=== PATIENT | male | born 1940 | race Caucasian/White ===

== ENCOUNTER 2024-09-20 22:45 | Inpatient (IN) | payer MEDICARE, OTHER, SELFPAY ==
[2024-09-20] VITALS (7 sets, daily range): BP systolic 123–141; BP diastolic 39–53
[2024-09-20 20:17] LABS: % Basophils 0.7 % (0-2); % Eosinophils 2.8 % (0-6); % Immature Granulocytes 0.3 % (0-0.5); % Lymphocytes 24.6 % (20.5-51.1); % Monocytes 10.2 % (1.7-9.3); % Neutrophils 61.4 % (42.2-75.2); Absolute Basophils 0.1 10^3/uL (0-0.2); Absolute Eosinophils 0.2 10^3/uL (0-0.7); Absolute Lymphocytes 1.7 10^3/uL (1.2-3.4); Absolute Monocytes 0.7 10^3/uL (0.1-0.6); Absolute Neutrophils 4.2 10^3/uL (1.4-6.5); Hematocrit 35.1 % (39.0-52.0); Hemoglobin 12.1 g/dL (13.0-18.0); Mean Corp Hgb Conc. 34.5 g/dL (33.0-37.0); Mean Platelet Volume 11.4 fL (7.4-10.4); Nucleated Red Blood Cells % 0 % (-); Platelet Count 176 10^3/uL (130-400); White Blood Cell Count 6.8 10^3/uL (4.8-10.8)
--- NOTE | 2024-09-20 20:30 | ED.GENMED ---
History of Present Illness
General
Chief Complaint: Fainting Sensation
Time Seen by Provider: 09/20/24 20:00
History of Present Illness
History of Present Illness:
Patient is a 83-year-old woman with history of hypertension, hyperlipidemia presenting to the emergency department with near syncope. Patient himself does have dementia so is unable to provide clear history. He states that he only recalls eating
dinner and then he was here. Per patient's family numbers at bedside he was sitting and started staring off. He became very pale and was not responding. Initially triage note noted that he stood became sweaty nauseous however family states that
he never stood up and that happened at rest. They do state that he has been having some episodes of orthostatic dizziness which is why his primary care doctor had him wear a Holter monitor. 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 He has no history of
arrhythmia. He has never had this staring episode where he became extremely pale. Patient denies any chest pain shortness of breath abdominal pain. Per medics when they arrived his heart rate was in the 30s with a blood pressure of 82/55.
Unclear what their twelve-lead showed but they did give him 1 mg of atropine as well as IV fluids. His heart rate has improved to the 40s 50s and his blood pressures also improved.
Phy Exam
Physical Exam
Physical Exam:
GENERAL: in no acute distress
HEENT: normocephalic, extraocular movements intact, dry oral mucosa
NECK: normal inspection
RESPIRATORY: no respiratory distress, clear to auscultation bilaterally
CARDIOVASCULAR: regular rhythm, bradycardic rate
ABDOMEN/: soft, non-distended, non-tender to palpation, no rebound or guarding
EXTREMITIES: non-tender, no edema/swelling
NEUROLOGIC: awake and alert, moves all extremities
SKIN: warm
Course
Orders/Labs/Results
Orders:
Orders
09/20/24 20:05
EKG [Electrocardiogram (*1)] Urgent
Reason for Study: Vertigo / Dizzy
09/20/24 20:06
EKG- Treatment ONCE
09/20/24 20:07
Complete Blood Count/With Diff Urgent
Comprehensive Metabolic Panel Urgent
Magnesium Urgent
Comment: ADD ON
TSH Reflex To Free T4 Urgent
Comment: ADD ON
09/20/24 20:28
Add On- LAB Urgent
Tests Added?: magnesium, thyroid with reflex
Abnormal Lab Results
09/20/24
20:07
RBC 3.90 L 10^6/uL
(4.70-6.10)
Hgb 12.1 L g/dL
(13.0-18.0)
Hct 35.1 L %
(39.0-52.0)
MPV 11.4 H fL
(7.4-10.4)
Absolute Monos (auto) 0.7 H 10^3/uL
(0.1-0.6)
Monocytes % 10.2 H %
(1.7-9.3)
BUN 32 H mg/dl
(9-20)
Creatinine 1.8 H mg/dL
(0.7-1.3)
Glucose 145 H mg/dl
(70-99)
09/20/24 20:07
09/20/24 20:07
Vital Signs
Initial and Last Documented VS:
Initial Vital Signs
Temp Pulse Resp BP Pulse Ox
97.9 F 48 18 141/48 97
09/20/24 19:54 09/20/24 19:54 09/20/24 19:54 09/20/24 19:54 09/20/24 19:54
Last Documented Vital Signs
Temp Pulse Resp BP Pulse Ox
97.9 F 48 18 141/48 97
09/20/24 19:54 09/20/24 19:54 09/20/24 19:54 09/20/24 19:54 09/20/24 19:54
MDM/Problems Addressed
Differential Diagnosis Includes:
Patient is a 83-year-old male with history of dementia, hypertension, hyperlipidemia presenting to the emergency department with a near syncopal event. On arrival patient's heart rate is in the 40s. Exam does show dry oral mucosa. During my
evaluation in the room patient did have a sinus bradycardic however did have occasional PVCs. Concern for cardiac arrhythmia especially given the heart rate in the 30s when medics arrived. Given that there was no positional changes less likely be
orthostatic. EKG per my interpretation sinus bradycardia. Will also obtain blood work including magnesium and thyroid.
*Critical Care Note
Total Time (30-74mins, 75-104mins- exclusive of procedures): Not Applicable
Update Note
Update Note:
Blood work reassuring. Patient on the monitor did intermittently have PVCs. However given the event without any prodrome patient will need admission. Discussed with hospitalist accepted patient to their service
ED Attending Note
-
Portions of this chart may have been created with voice recognition software.� Occasional wrong word or��sound alike� substitutions may have occurred due to the inherent limitations of voice recognition software.
Discharge Plan
Departure
Patient Disposition: Admit
Date of Disposition: 09/20/24
Time of Disposition: 21:31
Presentation/result/management discussed w/ accepting MD/DO: Hospitalist
Discharge Problem:
Near syncope
Interventions
Interventions:
*Risk Screen - Suicide Last Done: 09/20/24 20:02
*General Assessment Last Done: 09/20/24 20:02
*Neglect/Abuse Screening Last Done: 09/20/24 20:02
*ED- Fall Risk Assessment Last Done: 09/20/24 20:02
*ED COVID-19 Vaccine History Last Done: 09/20/24 20:00
Discharge Date and Time
Print Language: KINYARWANDA
[2024-09-20 20:34] LABS: ALT (SGPT) 16 U/L (0-50); AST (SGOT) 22 U/L (17-59); Albumin 4.2 g/dl (3.5-5.0); Alkaline Phosphatase 43 U/L (38-126); Blood Urea Nitrogen 32 mg/dl (9-20); Calcium 9.5 mg/dl (8.4-10.2); Carbon Dioxide 27 mmol/L (22-30); Chloride 105 mmol/L (98-107); Glucose 145 mg/dl (70-99); Potassium 4.4 mmol/L (3.5-5.1); Sodium 142 mmol/L (135-145); Total Bilirubin 0.5 mg/dl (0.2-1.3); Total Protein 6.8 g/dl (6.3-8.2); eGFR 37.35
[2024-09-20 20:41] LABS: Magnesium 2.3 mg/dl (1.6-2.3)
[2024-09-20 21:27] LABS: TSH Reflex To Free T4 1.76 uIU/ml (0.47-4.68)
--- NOTE | 2024-09-20 22:23 | HPS.HSE ---
Family Physician
-
Family Physician:
Chief Complaint
-
presyncope
History of Present Illness
83-year-old male past medical history of hypertension, orthostatic hypotension, hyperlipidemia, dementia, TIA presenting with near syncope. Patient has dementia so is unable to provide clear history. He states that he only recalls eating dinner
and that he was here. Per patient's family he was sitting and staring off. Became very pale and was not responding. Initially triage noted that when he stood he became sweaty and nauseous but family states that he never stood up and this happened
at rest.
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 He has no history of arrhythmias. He denies any chest pain shortness of breath or abdominal pain. Per medics when they arrived his heart rate was in the 30s with blood pressure of 80/55. He was given 1 mg of
atropine and IV fluids. Heart rate improved to 40s to 50s and blood pressure improved.
As per patient's patient has an episode of elevated blood pressure for which he is on many blood pressure medications. Had a syncopal episode 3 years ago attributed to low blood pressure from hypovolemia. He has a history of dizziness for
several years.
Patient was started on metoprolol and hydrochlorothiazide 2 days ago for blood pressure in the 170s. She states that his blood pressure has been in the 130s since starting the medications. Orthostatics was checked at the facility and his blood
pressure dropped by 20 points apparently. He has been on a Holter monitor.
He had 1 alcoholic drink tonight. He is a former smoker.
Medical History
Past Medical History
Past Medical History: Reports Other (hypertension, orthostatic hypotension, hyperlipidemia, dementia, TIA )
Past Surgical History: Reports None
Social History
Tobacco: Former Smoker
Alcohol: Occasional
Drug: None
Family History
Family History: Not pertinent
Allergies / Home Medications
Allergies reflects when Allergies were last updated in [facility].
Home Medications with original date entered in [facility]
Allergy/Medication List:
Allergies
Allergy/AdvReac Type Severity Reaction Status Date / Time
No Known Allergies Allergy Verified 09/20/24 19:50
Home Medications
acetaminophen 325 mg tablet (Tylenol) 650 mg PO Q4H PRN pain 09/20/24
amlodipine 10 mg tablet 10 mg PO DAILY 09/20/24
bupropion HCl 75 mg tablet 75 mg PO BID 09/20/24
clopidogrel 75 mg tablet 75 mg PO DAILY 09/20/24
donepezil 10 mg tablet (Aricept) 10 mg PO HS 09/20/24
finasteride 5 mg tablet 5 mg PO DAILY 09/20/24
hydrochlorothiazide 25 mg tablet 25 mg PO DAILY 09/20/24
losartan 100 mg tablet 100 mg PO DAILY 09/20/24
metoprolol tartrate 25 mg tablet 25 mg PO BID 09/20/24
brjsbgrxkmlz-ltioznba-tjydyu tablet 1 tab PO DAILY 09/20/24
pravastatin 40 mg tablet 40 mg PO HS 09/20/24
terazosin 2 mg tablet 2 mg PO BID 09/20/24
Review of Systems
-
History Source: Patient
A 12 point ROS was completed and negative except as noted: Yes
Constitutional: Reports No Symptoms
EENT: Reports No Symptoms
Respiratory: Reports No Symptoms
Cardiac: Reports See HPI
Abdomen/GI: Reports No Symptoms
: Reports No Symptoms
Musculoskeletal: Reports No Symptoms
Skin: Reports No Symptoms
Neurological: Reports No Symptoms
Endocrine: Reports No Symptoms
Hematologic/Lymphatic: Reports No Symptoms
Psych: Reports No Symptoms
Physical Exam
Vital Signs
Vital Signs
Temp Pulse Resp BP Pulse Ox
97.9 F 48 18 141/48 97
09/20/24 19:54 09/20/24 19:54 09/20/24 19:54 09/20/24 19:54 09/20/24 19:54
Physical Exam
General: Well Developed, Well Nourished and No Apparent Distress
HEENT: NormoCephalic, Moist mucous membranes and Atraumatic
Respiratory: Clear
Cardiac: S1/S2 and Regular Rhythm; No Murmur or Rub
GI: Soft, Non Tender, Non Distended and Normal Bowel Sounds; No Organomegaly
Rectal: Deferred by Provider
Musculoskeletal: No Clubbing, No Cyanosis and No Edema
Skin: No Rash
Neuro: Nonfocal/grossly intact
Laboratory Results
-
09/20/24 20:07
09/20/24 20:07
Laboratory Results
Total Bilirubin 0.5 mg/dl (0.2-1.3) 09/20/24 20:07
AST 22 U/L (17-59) 09/20/24 20:07
ALT 16 U/L (0-50) 09/20/24 20:07
Alkaline Phosphatase 43 U/L (38-126) 09/20/24 20:07
Data Reviewed
-
Lab Data: Labs Reviewed by me
Old Records: Reviewed
Impression/Plan
-
IMPRESSION:
PLAN:
# Presyncopal episode strongly suggestive of orthostatic hypotension exacerbated by multiple antihypertensive medications and addition of metoprolol/hydrochlorothiazide
# Sinus bradycardia secondary to metoprolol
-Was given atropine by EMS
-Currently asymptomatic
-EKG shows sinus bradycardia heart rate of 50
-Telemetry monitoring
- Check orthostatic vital signs
- Check TSH
- Patient is due for metoprolol and losartan tonight will hold
# Acute kidney injury likely prerenal
-1.8, no prior baseline
- No CKD as per
- IV fluids
- Hold nephrotoxic medications until recovery
Essential hypertension
- Hold amlodipine, hydrochlorothiazide, losartan, terazosin, metoprolol
- Can likely resume nonnephrotoxic antihypertensives tomorrow
Hyperlipidemia
- Continue statin
Dementia
-Continue donepezil
Anxiety/depression
- Continue bupropion
BPH
-Continue finasteride
History of TIA
- Continue Plavix
DNR/DNI
DVT prophylaxis�heparin
Regular diet
[2024-09-21] VITALS (12 sets, daily range): BP systolic 128–155; BP diastolic 45–64; PULSE 55–60; O2SAT 96; BMI 27.6
[2024-09-21] MEDS: NSS 1000 IV ×3 (01:21→21:12)
--- NOTE | 2024-09-21 01:39 | PTCARENOTE ---
Received patient from ED via stretcher into room 2250. Patient ambulated w/ standby assist to bed, and denies any dizziness. Orthostatic vitals obtained, neg orthos. Tele monitor shows Sinus andrea w/ occasional PVCs. HR in the 40-50's at rest.
Patient denies any pain or palpitations at this time. Patient oriented to self only, t pleasantly confused, d/t hx of dementia. Holter monitor intact. Call vogel within reach.
--- NOTE | 2024-09-21 01:44 | PTCARENOTE ---
Received patient from ED via stretcher into room 2253. Patient ambulated w/ standby assist to bed, and denies any dizziness. Orthostatic vitals obtained, neg orthos. Tele monitor shows Sinus andrea w/ occasional PVCs. HR in the 40-50's at rest.
Patient denies any pain or palpitations at this time. Patient oriented to self only, and pleasantly confused. Pt w/ hx of dementia. Holter monitor intact. Call vogel within reach, bed alarm active. Fall risk precautions maintained.
[2024-09-21 04:30] LABS: % Basophils 0.5 % (0-2); % Eosinophils 1.7 % (0-6); % Immature Granulocytes 0.3 % (0-0.5); % Monocytes 8.5 % (1.7-9.3); Absolute Basophils 0.1 10^3/uL (0-0.2); Absolute Eosinophils 0.2 10^3/uL (0-0.7); Absolute Lymphocytes 1.7 10^3/uL (1.2-3.4); Absolute Monocytes 0.9 10^3/uL (0.1-0.6); Absolute Neutrophils 7.9 10^3/uL (1.4-6.5); Hematocrit 32.4 % (39.0-52.0); Hemoglobin 11.2 g/dL (13.0-18.0); Mean Corp Hgb Conc. 34.6 g/dL (33.0-37.0); Mean Corpuscular Hgb 31.5 pg (27.0-31.0); Mean Corpuscular Volume 91.3 fL (80.0-94.0); Nucleated Red Blood Cells % 0 % (-); Platelet Count 168 10^3/uL (130-400); Red Blood Cell Count 3.55 10^6/uL (4.70-6.10); White Blood Cell Count 10.8 10^3/uL (4.8-10.8)
[2024-09-21 04:54] LABS: ALT (SGPT) 15 U/L (0-50); AST (SGOT) 16 U/L (17-59); Albumin 3.7 g/dl (3.5-5.0); Alkaline Phosphatase 44 U/L (38-126); Blood Urea Nitrogen 30 mg/dl (9-20); Calcium 9.2 mg/dl (8.4-10.2); Carbon Dioxide 28 mmol/L (22-30); Chloride 109 mmol/L (98-107); Estimated Creatinine Clearance 36 ml/min; Glucose 101 mg/dl (70-99); Potassium 3.8 mmol/L (3.5-5.1); Sodium 144 mmol/L (135-145); Total Bilirubin 0.3 mg/dl (0.2-1.3); Total Protein 6.1 g/dl (6.3-8.2); eGFR 50.49
[2024-09-21] MEDS: PLAVIX 75 MG PO (08:41)
[2024-09-21] MEDS: PROSCAR 5 MG PO (08:41)
[2024-09-21] MEDS: HEPARIN 5000 UNITS SC ×2 (08:41→19:37)
[2024-09-21] MEDS: THERAGRAN 1 TABLET PO (08:41)
[2024-09-21] MEDS: WELLBUTRIN REGULAR RELEASE 75 MG PO ×2 (08:41→19:37)
--- NOTE | 2024-09-21 11:25 | CON.CAR ---
Addendum entered and electronically signed by Elham Dave PA-C 09/21/24 15:20:
Reviewed records received from outpatient sports commentator, Dr. Kit Watts.
He was last seen in January 2024 and was stable at that time. Patient was noted to be hypertensive but sports commentator was reluctant to adjust antihypertensive agents given prior history of syncope and intermittent lightheadedness.
Lexiscan nuclear stress test January 2023 ([facility]): Negative for ischemia with normal hemodynamic response, occasional PACs and PVCs.
Echocardiogram January 2023: EF 60 to 65%, mild to moderate MR, mild AI.
Carotid duplex July 2024: Less than 50% bilateral ICA stenosis
Addendum entered and electronically signed by Charly Cordoba MD 09/21/24 13:46:
I saw and examined the patient.
The COLD ROLL INSPECTOR or PA's note was reviewed and I agree with the note.
Comment: General: Well developed, well nourished in NAD.
Neck: Supple, no JVD, HJR, carotids +2 B/L, no bruits bilaterally.
Heart: Non displaced PMI, RRR, 1-2/6 basal systolic murmur, No S3, S4, no rubs.
Lungs: crackles at left base
Extremities: No clubbing, cyanosis or edema bilaterally.
Neuro: Grossly nonfocal, awake, alert and oriented x3.
Moody has a h/o htn, hyperlipidemia, tia X2 with b/l CEA, dementia. He presents with syncope. He was sitting and noted to have blank stare with diaphoresis and pallor. He was bradycardic and hypotensive and given atropine by EMS.
Noted to have RI on admission. Likely vasovagal/ orthostasis. Hold hctz, losartan and lopressor. May need to allow permissive hypertension. follow orthostatics and check echo. Wearing monitor at time of event and will await results.
Original Note:
Consultation
Consultation Request
Date/Time Consultation Requested: 09/21/2024
Date/Time Consultation Performed: 09/21/2024
Requesting Provider: Dr. Almodovar
Performing Provider: Elham Dave PA-C for Dr. Cordoba
Reason for Consultation: bradycardia, near syncope
Medical History
-
History of Present Illness:
Patient is am 83 YOM with past medical history of hypertension, hyperlipidemia, dementia, TIA x 2 status post bilateral carotid endarterectomy and history of orthostatic hypotension/syncope who presented to [facility] 09/20/2024 with
bradycardia, hypotension and near syncope. Patient is poor historian and unable to provide history. Patient's daughter Sarah is at bedside and provides history. She reports patient has progressively worsening dementia and is followed by
neurology, Dr. Huggins at [place]. Over the last year he is lost approximately 60 pounds with reduced appetite and poor hydration. He has been hospitalized at [facility] and [facility] with near syncope and falls on multiple
occasions over the last 6 months. He had an episode approximately 4 weeks ago where he suffered a mechanical fall and was treated for dehydration at [facility]. He recently saw PCP and was found to be hypertensive and HCTZ and Lopressor over the last 4
weeks. He was also placed on an outpatient [employer] monitor which he is currently wearing. On 09/20/2024 they were celebrating his birthday at [place] and they had completed eating when he started to open presents then became very quiet with a
blank stare and looked pale and diaphoretic. Daughter's is a sales floor team member and found his pulse to be low. EMS was called and noted patient to be hypotensive and bradycardic. He was provided atropine and route. On arrival patient's EKG showed
sinus bradycardia at 50 bpm with blood pressure of 141/48. Found to be dehydrated with BUN of 32 and creatinine of 1.8. He was provided IV fluids with improvement of creatinine to 1.4. Antihypertensive agents have been placed on hold.
Orthostatic blood pressures were negative.
Patient has seen sports commentator in past at [place] with Dr. Kit Watts. However daughter is unaware of the last time he had a visit.
PMH:
Hypertension
Hyperlipidemia
Dementia
TIA x 2
Bradycardia
Near syncope
Orthostatic hypotension
Carotid artery stenosis status post bilateral CEA
Past Medical History
Past Medical History: Other (See HPI)
Past Surgical History: Other (Left CEA 2005, right CEA 2016)
Social History
Tobacco: Former Smoker
Alcohol: Occasional (1-2 drinks a month on special occasions)
Drug: None
Personal:
Living: Prison ([facility] in assisted living/memory care)
Family History
Family History: CAD (Mother and father)
Allergies / Home Medications
Allergy/AdvReac Type Severity Reaction Status Date / Time
No Known Allergies Allergy Verified 09/20/24 19:50
�Medication �Instructions �Recorded �Confirmed �Type
acetaminophen 325 mg tablet 650 mg PO Q4H PRN pain 09/20/24 09/20/24 History
(Tylenol)
amlodipine 10 mg tablet 10 mg PO DAILY Blood Pressure 09/20/24 09/20/24 History
bupropion HCl 75 mg tablet 75 mg PO BID Mental Health/Anxiety 09/20/24 09/20/24 History
clopidogrel 75 mg tablet 75 mg PO DAILY Blood Clot 09/20/24 09/20/24 History
Prevention/Tx
donepezil 10 mg tablet (Aricept) 10 mg PO HS Neurological Condition 09/20/24 09/20/24 History
finasteride 5 mg tablet 5 mg PO DAILY Urinary Issue 09/20/24 09/20/24 History
hydrochlorothiazide 25 mg tablet 25 mg PO DAILY Electrolyte 09/20/24 09/20/24 History
Repletion
losartan 100 mg tablet 100 mg PO DAILY Blood Pressure 09/20/24 09/20/24 History
metoprolol tartrate 25 mg tablet 25 mg PO BID Blood Pressure 09/20/24 09/20/24 History
lbcwwvbhtdad-jndrbwqn-gzrzwa tablet 1 tab PO DAILY Supplement 09/20/24 09/20/24 History
pravastatin 40 mg tablet 40 mg PO HS High Cholesterol 09/20/24 09/20/24 History
terazosin 2 mg tablet 2 mg PO BID BPH 09/20/24 09/20/24 History
Review of Systems
-
History Source: Family (Daughter Sarah)
Physical Exam
Vital Signs
Temp Pulse Resp BP Pulse Ox
98.4 F 47 20 144/63 96
09/21/24 07:52 09/21/24 09:00 09/21/24 07:52 09/21/24 07:52 09/21/24 07:52
GEN: No distress, awake, Ox3
HEENT: supple, anicteric, mmm
LUNGS: CTA, no wheezes/rales
CV: Reg, bradycardic S1/S2, 1/6 syst LSB murmur, no rub or gallop
ABD: soft, BS+, NT/ND
EXT: No edema, clubbing or cyanosis
NEURO: Pleasantly demented
SKIN: No rash
Lab Results
09/21/24 04:19
09/21/24 04:19
Impression / Plan
-
PCP: Nurse practitioner at [facility]
Quality Officer: Kit Watts
Impression:
Presented 09/20/2024 with near syncope
Hypotension
Bradycardia
Hypertension
Hyperlipidemia
Dementia
TIA x 2
Bradycardia
Near syncope
Orthostatic hypotension
Carotid artery stenosis status post bilateral CEA
Echo 09/21/2024: Pending
Plan:
-Presented 09/20/2024 with near syncope which occurred after patient had finished eating a meal and was opening presents while seated.
-Reportedly patient was hypotensive (82/55) and bradycardic (HR 30's) by EMS report. He received atropine 1 mg and IV fluids with improvement of vitals
-Heart rate has remained in the 40's-50's bpm without significant pauses or heart block per my review of telemetry. Would avoid all of AV collin blocking agents. Patient is wearing an outpatient monitor however it is not a real-time monitor. If
patient would have pauses or heart block at time of near syncopal event could consider pacemaker implant.
-Found to have PATEL with BUN 32, creatinine 1.8 on admission. Renal function has improved with ongoing IV hydration, creatinine 1.4. I personally reviewed outpatient laboratory study that daughter has which showed creatinine of 1.5 from 09/1424.
Daughter admits patient has poor appetite and fluid intake and has to be reminded to eat and drink.
-All antihypertensive agents have been placed on hold.
-Would not resume AV collin blocking agent or diuretic. Also discussed terazosin can cause orthostatic hypotension.
-Aricept can also cause bradycardia, hypertension and syncope. May need to weigh risk versus benefit of continuation of this medication
-Orthostatic blood pressures have been negative.
-TSH, 1.76. Within normal limits
-Would check echocardiogram, ordered by me
-PT/OT assessment
-Will obtain outpatient cardiology records
HPI 09/21/2024:
Patient is am 83 YOM with past medical history of hypertension, hyperlipidemia, dementia, TIA x 2 status post bilateral carotid endarterectomy and history of orthostatic hypotension/syncope who presented to [facility] 09/20/2024 with
bradycardia, hypotension and near syncope. Patient is poor historian and unable to provide history. Patient's daughter Sarah is at bedside and provides history. She reports patient has progressively worsening dementia and is followed by
neurology, Dr. Huggins at [place]. Over the last year he is lost approximately 60 pounds with reduced appetite and poor hydration. He has been hospitalized at [facility] and [facility] with near syncope and falls on multiple
occasions over the last 6 months. He had an episode approximately 4 weeks ago where he suffered a mechanical fall and was treated for dehydration at [facility]. He recently saw PCP and was found to be hypertensive and HCTZ and Lopressor over the last 4
weeks. He was also placed on an outpatient [employer] monitor which he is currently wearing. On 09/20/2024 they were celebrating his birthday at [place] and they had completed eating when he started to open presents then became very quiet with
a blank stare and looked pale and diaphoretic. Daughter's is a sales floor team member and found his pulse to be low. EMS was called and noted patient to be hypotensive and bradycardic. He was provided atropine and route. On arrival patient's EKG
showed sinus bradycardia at 50 bpm with blood pressure of 141/48. Found to be dehydrated with BUN of 32 and creatinine of 1.8. He was provided IV fluids with improvement of creatinine to 1.4. Antihypertensive agents have been placed on hold.
Orthostatic blood pressures were negative.
Patient has seen sports commentator in past at [place] with Dr. Kit Watts. However daughter is unaware of the last time he had a visit.
Data Reviewed
-
EKG: Report Reviewed by me, Discussed with Physician, Discussed with Nurse and Discussed with Family
Labs: Labs Reviewed by me, Discussed with Physician, Discussed with Nurse and Discussed with Family
Old Records: Requested
--- NOTE | 2024-09-21 11:57 | CM ---
Chart reviewed. Daughter Sarah at bedside. Patient currently lives in Assisted Living at [facility], 0 DME. Left a message for the nurse, Neto at [facility] to assess patient's baseline. PT evaluation recommended to assess
patient's functional needs at discharge. CM to follow
--- NOTE | 2024-09-21 13:49 | PTCARENOTE ---
Holter monitor removed, placed in original box and given to daughter
--- NOTE | 2024-09-21 16:35 | W.PN.HOSP.TC ---
Today's Communication/Plan
-
Assessment / Plan
Assessment / Plan
General: No Apparent Distress, Comfortable and Conversant
HEENT: NormoCephalic, Moist mucous membranes, Atraumatic
Respiratory: Clear and Non Labored Respirations
Cardiac: S1/S2 and Regular Rhythm; HR 50, no Rub or Gallop
GI: Soft, Non Tender, Non Distended and Normal Bowel Sounds
Musculoskeletal: No Edema, no deformity
Skin: Warm and dry
: NO Dominguez
Neuro: Awake, Alert, Nonfocal/grossly intact
Psych: Calm and cooperative
Mr. Cuenca is an 83-year-old male with a medical history of hypertension complicated by intermittent orthostatic hypotension, TIA x 2, bilateral carotid endarterectomy, and dementia who presented with near syncope. After finishing a meal for his
birthday, family noted him to have a blank stare with diaphoresis and not responding. EMS reportedly found him to be bradycardic with HR in the 30s and hypotension, and subsequently administered atropine. The patient's daughter Sarah notes that
he has had a very poor appetite over the past year and has lost approximately 60 pounds during that time. She also notes that he has had multiple hospitalizations over the past 6 months to 2 episodes of near syncope and falls. He follows with "Ang"Joseluis at [facility] for his progressively worsening dementia. He last saw his parts data writer (Dr. Watts) in January 2024 who noted him to be hypertensive but was reluctant to titrate up his blood pressure medications due to known
history of orthostatic hypotension and falls. However patient's daughter Sarah notes that the patient's PCP office did recently start him on Lopressor and HCTZ.
In the ED, he was found to be normotensive and his heart rate had improved to around 50. He was admitted for further evaluation and management of near syncope.
Near syncope:
- Recurrent, multiple hospitalizations over the past 6 months for similar presentation
- Suspect patient has difficult to control blood pressure due to autonomic dysfunction with progressive dementia, also with associated hypovolemia due to poor p.o. intake
- Recently started on Lopressor and HCTZ in addition to home regimen of amlodipine and losartan, all of which are now being held
- Has Holter monitor in place which she was wearing at the time of presyncopal event, will follow-up with cardiology regarding any recorded events
- Echocardiogram this admission shows preserved systolic function with moderate to severe mitral regurgitation
- Will check orthostatic vital signs
- Continue IV fluids
- Appreciate cardiology guidance
- Follow-up PT/OT recommendations
- Consider utility of his home medications Aricept and terazosin which could be contributing to his symptoms
PATEL:
- Suspect prerenal in the setting of low blood pressure and likely hypovolemia due to poor recent p.o. intake
- Recent baseline creatinine appears to be around 1.5, it was 1.8 at time of admission
- Continuing IV fluids, will monitor
Carotid artery disease:
- Status post bilateral carotid endarterectomies
- Continue Plavix and statin
DVT prophylaxis: Subcu heparin
CODE STATUS: DNR
Total time spent on today's encounter was 50 minutes
Anticipated Discharge: 24 - 48 hours
Subjective/Interval History
-
Date of Service: September 21, 2024
Patient was seen and examined at bedside this morning. Currently feeling well, no dizziness. Holding off blood pressure meds and beta-rhianna following admission for presyncope.
Objective Data
-
Labs:
Laboratory Results
09/21/24
04:19
Sodium 144
Potassium 3.8
Chloride 109 H
Carbon Dioxide 28
BUN 30 H
Creatinine 1.4 H
Glucose 101 H
Calcium 9.2
Total Bilirubin 0.3
AST 16 L
ALT 15
Alkaline Phosphatase 44
Vital Signs:
Vital Signs
Temp Pulse Resp BP Pulse Ox
97.8 F 47 20 144/63 97
09/21/24 16:21 09/21/24 09:00 09/21/24 16:21 09/21/24 07:52 09/21/24 16:21
I&O
09/20/24 09/21/24 09/22/24
06:59 06:59 06:59
Intake Total 340 / 340
Balance 340 / 340
Review of Systems
-
Unable to obtain full review of systems at this time due to: Dementia
History Source: Patient
All other systems: Reviewed and negative
Physical Exam
-
General: No Apparent Distress
--- NOTE | 2024-09-21 20:40 | PTCARENOTE ---
Received pt @ change of shift. Alert and oriented to self, not to time or location. Sinus andrea on monitor, other VSS. Chair and bed alarms in place. NSS running through right arm IV @ 100mL/hr. Discussed plan of care and emphasized calling for help
when wanting to get OOB. Pt verbalizes understanding.
[2024-09-21] MEDS: ARICEPT 10 MG PO (21:11)
[2024-09-21] MEDS: PRAVACHOL 40 MG PO (21:11)
[2024-09-22 05:12] VITALS: BP 139/57
[2024-09-22 05:28] LABS: % Basophils 0.6 % (0-2); % Eosinophils 3.9 % (0-6); % Immature Granulocytes 0.4 % (0-0.5); % Lymphocytes 26.4 % (20.5-51.1); % Monocytes 8.7 % (1.7-9.3); Absolute Eosinophils 0.3 10^3/uL (0-0.7); Absolute Lymphocytes 1.9 10^3/uL (1.2-3.4); Absolute Monocytes 0.6 10^3/uL (0.1-0.6); Absolute Neutrophils 4.3 10^3/uL (1.4-6.5); Hematocrit 31.7 % (39.0-52.0); Mean Corp Hgb Conc. 34.7 g/dL (33.0-37.0); Mean Corpuscular Hgb 31.3 pg (27.0-31.0); Mean Corpuscular Volume 90.3 fL (80.0-94.0); Mean Platelet Volume 11.1 fL (7.4-10.4); Nucleated Red Blood Cells % 0 % (-); Platelet Count 155 10^3/uL (130-400); Red Blood Cell Count 3.51 10^6/uL (4.70-6.10); White Blood Cell Count 7.2 10^3/uL (4.8-10.8)
[2024-09-22 05:54] LABS: Blood Urea Nitrogen 19 mg/dl (9-20); Calcium 8.8 mg/dl (8.4-10.2); Carbon Dioxide 25 mmol/L (22-30); Chloride 113 mmol/L (98-107); Estimated Creatinine Clearance 50 ml/min; Glucose 88 mg/dl (70-99); Potassium 3.5 mmol/L (3.5-5.1); Sodium 144 mmol/L (135-145); eGFR > 60.00
[2024-09-22] MEDS: NSS 1000 IV (07:16)
--- NOTE | 2024-09-22 08:09 | W.PN.CARDCBS ---
Addendum entered and electronically signed by Charly Cordoba MD 09/22/24 10:23:
I saw and examined the patient.
The MANAGER AMBULATORY or PA's note was reviewed and I agree with the note.
Comment: General: Well developed, well nourished in NAD.
Neck: Supple, no JVD, HJR, carotids +2 B/L, no bruits bilaterally.
Heart: Non displaced PMI, RRR, no murmurs, No S3, S4, no rubs.
Lungs: Clear to auscultation bilaterally, no wheeze, rhonchi, rubs bilaterally,
normal expiratory phase.
Extremities: No clubbing, cyanosis or edema bilaterally.
Neuro: Grossly nonfocal, awake, alert and oriented x3.
Echocardiogram with normal LV function and moderate to severe MR. Echo 2022 with moderate MR. No need for treatment at this point. Likely vasovagal/orthostasis because of syncope. Will restart Norvasc and continue to hold HCTZ, losartan,
Lopressor. Discussed with in detail. She reports patient blood pressure is 170 at times. He likely has labile hypertension and may need some hypertensive medications restarted as an outpatient. Discontinue IV fluids and check orthostatics.
Stable cardiology status for discharge if able to ambulate and not orthostatic. Follow-up with [facility]
Original Note:
Today's Communication / Plan
-
Check orthostatic vitals
DC IV fluids
Add back amlodipine 5 mg daily
Hold all other antihypertensive agents
Avoid AV collin blocking agents and diuretic moving forward
Will arrange for outpatient cardiology follow-up
Stable from cardiac standpoint for discharge
Impression / Plan
-
PCP: Nurse practitioner at [facility]
Microwave Supervisor: Kit Watts
Impression:
Presented 09/20/2024 with near syncope
Hypotension
Bradycardia
Hypertension
Hyperlipidemia
Dementia
TIA x 2
Bradycardia
Near syncope
Orthostatic hypotension
Carotid artery stenosis status post bilateral CEA
Lexiscan nuclear stress test January 2023 ([facility]): Negative for ischemia with normal hemodynamic response, occasional PACs and PVCs.
Echocardiogram January 2023: EF 60 to 65%, mild to moderate MR, mild AI.
Echo 09/21/2024: EF 72%. Mildly enlarged left atrium. Moderate to severe MR. Mild AI
Carotid duplex July 2024: Less than 50% bilateral ICA stenosis
Plan:
-Presented 09/20/2024 with near syncope which occurred after patient had finished eating a meal and was opening presents while seated. Reportedly patient was hypotensive (82/55) and bradycardic (HR 30's) by EMS report. He received atropine 1 mg and
IV fluids with improvement of vitals.
-Found to have PATEL with BUN 32, creatinine 1.8 on admission. Renal function improved with IV hydration to 1.4 and currently 1.0. Daughter admits patient has poor appetite and fluid intake and has to be reminded to eat and drink.
-DC IV fluids this morning
-Suspect syncope was likely vasovagal/orthostasis likely related to dehydration.
-Orthostatic blood pressures have been negative on admission and repeated again today and are negative.
-TSH, 1.76. Within normal limits
-Echocardiogram with preserved EF and moderate to severe MR. Slightly progressed since echo in 2022. Defer to outpatient tool or die drawing checker given patient's advanced age and underlying dementia
Heart rate has remained in the 40's-50's bpm without significant pauses or heart block per my review of telemetry. Would avoid all of AV collin blocking agents. Patient was wearing an outpatient monitor when he was admitted however it is not a
real-time monitor. Monitor removed and daughter returned to ordering provider. If patient would have pauses or heart block at time of near syncopal event could consider pacemaker implant. Will defer to outpatient tool or die drawing checker
Longstanding history of hypertension.
- Per review of outpatient cardiology record they have been reluctant to adjust antihypertensive agents given prior history of syncope and intermittent lightheadedness. Would allow for permissive hypertension.
-All antihypertensive agents have been placed on hold since admission. Previously was on losartan 100 mg, Lopressor 25 mg twice a day, hydrochlorothiazide 25 mg, terazosin 4 mg at bedtime and amlodipine 10 mg daily
-Would not resume AV collin blocking agent or diuretic. Also discussed terazosin can cause orthostatic hypotension.
-Blood pressures this admission have been ranging from upper 120's/50's to 140's/60's. Highest BP 150/54
-Resume amlodipine at 5 mg. Likely will need additional agents added back down the road but would not be overly aggressive at this point.
-Aricept can also cause bradycardia, hypertension and syncope. May need to weigh risk versus benefit of continuation of this medication. Will defer to outpatient neurologist Dr. Huggins
PT/OT evaluation
HPI 09/21/2024:
Patient is am 83 YOM with past medical history of hypertension, hyperlipidemia, dementia, TIA x 2 status post bilateral carotid endarterectomy and history of orthostatic hypotension/syncope who presented to [facility] 09/20/2024 with
bradycardia, hypotension and near syncope. Patient is poor historian and unable to provide history. Patient's daughter Sarah is at bedside and provides history. She reports patient has progressively worsening dementia and is followed by
neurology, Dr. Huggins at [place]. Over the last year he is lost approximately 60 pounds with reduced appetite and poor hydration. He has been hospitalized at [facility] and [facility] with near syncope and falls on multiple
occasions over the last 6 months. He had an episode approximately 4 weeks ago where he suffered a mechanical fall and was treated for dehydration at [facility] [place] [place]. He recently saw PCP and was found to be hypertensive and HCTZ and Lopressor over the last 4
weeks. He was also placed on an outpatient [employer] monitor which he is currently wearing. On 09/20/2024 they were celebrating his birthday at [place] and they had completed eating when he started to open presents then became very quiet with
a blank stare and looked pale and diaphoretic. Daughter's is a manager cath lab and found his pulse to be low. EMS was called and noted patient to be hypotensive and bradycardic. He was provided atropine and route. On arrival patient's EKG
showed sinus bradycardia at 50 bpm with blood pressure of 141/48. Found to be dehydrated with BUN of 32 and creatinine of 1.8. He was provided IV fluids with improvement of creatinine to 1.4. Antihypertensive agents have been placed on hold.
Orthostatic blood pressures were negative.
Patient has seen tool or die drawing checker in past at [facility] with Dr. Kit Watts. However daughter is unaware of the last time he had a visit.
Progress Note - Microwave Supervisor
Subjective
Date of Service: September 22, 2024
Patient seen and evaluated this morning. Reports he feels great. Denies dizziness. Slept well without issues.
Patient's at bedside. Reviewed findings during hospitalization in great detail with her including cardiac testing, review of vital signs and current medication changes
Objective
Labs:
09/22/24 05:19
09/22/24 05:19
Labs
Hgb 11.0 g/dL (13.0-18.0) L 09/22/24 05:19
Hct 31.7 % (39.0-52.0) L 09/22/24 05:19
Plt Count 155 10^3/uL (130-400) 09/22/24 05:19
Sodium 144 mmol/L (135-145) 09/22/24 05:19
Potassium 3.5 mmol/L (3.5-5.1) 09/22/24 05:19
BUN 19 mg/dl (9-20) 09/22/24 05:19
Creatinine 1.0 mg/dL (0.7-1.3) 09/22/24 05:19
Glucose 88 mg/dl (70-99) 09/22/24 05:19
Vital Signs and I&O:
Vital Signs
Temp Pulse Resp BP Pulse Ox
98.5 F 55 18 139/57 94
09/22/24 05:09 09/22/24 06:00 09/22/24 05:09 09/22/24 05:12 09/22/24 05:12
Vital Signs
Temp Pulse Resp BP Pulse Ox
98.5 F 55 18 139/57 94
09/22/24 05:09 09/22/24 06:00 09/22/24 05:09 09/22/24 05:12 09/22/24 05:12
Intake & Output
09/20/24 09/21/24 09/22/24 09/23/24
06:59 06:59 06:59 06:59
Intake Total 2500 / 2500
Balance 2500 / 2500
Physical Exam
Physical Exam
GEN: No distress, awake, Ox3
HEENT: supple, anicteric, mmm
LUNGS: CTA, no wheezes/rales
CV: Reg, bradycardic S1/S2, 1/6 syst LSB murmur, no rub or gallop
ABD: soft, BS+, NT/ND
EXT: No edema, clubbing or cyanosis
NEURO: Pleasantly demented
SKIN: No rash, warm, dry,
[2024-09-22 08:39] VITALS: BP 154/53
[2024-09-22] MEDS: PLAVIX 75 MG PO (08:40)
[2024-09-22] MEDS: HEPARIN 5000 UNITS SC (08:40)
[2024-09-22] MEDS: WELLBUTRIN REGULAR RELEASE 75 MG PO (08:40)
[2024-09-22] MEDS: PROSCAR 5 MG PO (08:40)
[2024-09-22] MEDS: THERAGRAN 1 TABLET PO (08:40)
[2024-09-22 08:42] VITALS: BP 149/45
[2024-09-22 08:44] VITALS: BP 150/44
[2024-09-22 08:47] VITALS: BP 149/45; BP 150/44; BP 154/53; PULSE 58; PULSE 60; PULSE 63
[2024-09-22] MEDS: NORVASC 5 MG PO (08:47)
--- NOTE | 2024-09-22 11:31 | CM ---
Chart reviewed. Patient lives assisted living at [facility]. Report would need to be called to [phone] or [facility] [phone]. Fax DC to [phone]. Patient's to transport patient back to [facility]. CM to follow
[2024-09-22 12:06] VITALS: BP 163/56
--- NOTE | 2024-09-22 12:08 | W.DCSUMMARY ---
Discharge Summary
Discharge Data
Date of Admission: 09/20/24
Date of Discharge: 09/22/24
-
Pending Results: No
Hospital Course
Mr. Cuenca is an 83-year-old male with a medical history of hypertension complicated by intermittent orthostatic hypotension, TIA x 2, bilateral carotid endarterectomy, and dementia who presented with near syncope. After finishing a meal for his
birthday, family noted him to have a blank stare with diaphoresis and not responding. EMS reportedly found him to be bradycardic with HR in the 30s and hypotension, and subsequently administered atropine. The patient's daughter Sarah noted that
he has had a very poor appetite over the past year and has lost approximately 60 pounds during that time. She also noted that he has had multiple hospitalizations over the past 6 months to 2 episodes of near syncope and falls. He follows with "Ang"Joseluis at [facility] for his progressively worsening dementia. He last saw his dermatology sales representative (Dr. Watts) in January 2024 who noted him to be hypertensive but was reluctant to titrate up his blood pressure medications due to known
history of orthostatic hypotension and falls. However patient's daughter Sarah said that the patient's PCP office did recently start him on Lopressor and HCTZ.
His home antihypertensive medications were held at time of admission. His blood pressure and heart rate improved. His orthostatic vital signs were normal. An echocardiogram was obtained which showed preserved systolic function with moderate to
severe mitral regurgitation. Cardiology recommended outpatient monitoring but no indication for treatment at this point. He was restarted on his home amlodipine at lower dose of 5 mg daily. Losartan, metoprolol tartrate, and HCTZ will continue to
be held. He will need close follow-up with his dermatology sales representative and with his primary care physician for ongoing monitoring of his blood pressure and adjustments to his medication regimen as needed. He should discuss the risks versus benefits of
continuing terazosin and donepezil, as these could potentially contribute to hypotension and syncope. At this point, liberalizing his blood pressure goals in order to avoid hypotension is likely the safest option. At time of hospital discharge he
was medically stable.
General: No Apparent Distress, Comfortable and Conversant
HEENT: NormoCephalic, Moist mucous membranes, Atraumatic
Respiratory: Clear and Non Labored Respirations
Cardiac: S1/S2 and Regular Rhythm; HR 50, no Rub or Gallop
GI: Soft, Non Tender, Non Distended and Normal Bowel Sounds
Musculoskeletal: No Edema, no deformity
Skin: Warm and dry
: NO Dominguez
Neuro: Awake, Alert, Nonfocal/grossly intact
Psych: Calm and cooperative
More than 30 minutes spent in discharge including
Final examination of the patient
Summarizing hospital stay
Instructions for continuing care to all relevant caregivers
Preparation of discharge records, prescriptions, and referral forms
Total time spent (in minutes): 40
Discharge Plan
-
Patient Disposition: Assisted Living
Discharge Diagnosis/Procedures: Presyncope
Diet: Low Cholesterol
Activity: As tolerated
Activity Restrictions/Additional Instructions:
Mr. Cuenca is an 83-year-old male with a medical history of hypertension complicated by intermittent orthostatic hypotension, TIA x 2, bilateral carotid endarterectomy, and dementia who presented with near syncope. After finishing a meal for his
birthday, family noted him to have a blank stare with diaphoresis and not responding. EMS reportedly found him to be bradycardic with HR in the 30s and hypotension, and subsequently administered atropine. The patient's daughter Sarah noted that
he has had a very poor appetite over the past year and has lost approximately 60 pounds during that time. She also noted that he has had multiple hospitalizations over the past 6 months to 2 episodes of near syncope and falls. He follows with "Ang"Joseluis at [facility] for his progressively worsening dementia. He last saw his dermatology sales representative (Dr. Watts) in January 2024 who noted him to be hypertensive but was reluctant to titrate up his blood pressure medications due to known
history of orthostatic hypotension and falls. However patient's daughter aSrah said that the patient's PCP office did recently start him on Lopressor and HCTZ.
His home antihypertensive medications were held at time of admission. His blood pressure and heart rate improved. His orthostatic vital signs were normal. An echocardiogram was obtained which showed preserved systolic function with moderate to
severe mitral regurgitation. Cardiology recommended outpatient monitoring but no indication for treatment at this point. He was restarted on his home amlodipine at lower dose of 5 mg daily. Losartan, metoprolol tartrate, and HCTZ will continue to
be held. He will need close follow-up with his dermatology sales representative and with his primary care physician for ongoing monitoring of his blood pressure and adjustments to his medication regimen as needed. He should discuss the risks versus benefits of
continuing terazosin and donepezil, as these could potentially contribute to hypotension and syncope. At this point, liberalizing his blood pressure goals in order to avoid hypotension is likely the safest option. At time of hospital discharge he
was medically stable.
Referrals:
[facility] [Outside]
([phone]
)
Lou Guerrero CRNP [Family Provider] -
Kit Watts MD [Non-Admitting Privileges] - in three to four weeks (Called office for appointment and they are working on scheduling)
Prescriptions:
Continued
acetaminophen [Tylenol] 325 mg Tablet
650 mg PO Q4H PRN (Reason: pain)
pravastatin 40 mg Tablet
40 mg PO HS
donepezil [Aricept] 10 mg Tablet
10 mg PO HS
clopidogrel 75 mg Tablet
75 mg PO DAILY
bupropion HCl 75 mg Tablet
75 mg PO BID
finasteride 5 mg Tablet
5 mg PO DAILY
[id number]-[id number]-hrapte Tablet
1 tab PO DAILY
Changed
amlodipine 10 mg Tablet
5 mg PO DAILY Qty: 0 0RF
Held
terazosin 2 mg Tablet
2 mg PO BID
Hold Instructions: Hold until further discussion with your primary care physician, as this medication can potentially cause hypotension. Please consider the risks versus the benefits of taking this medication before deciding whether to continue
taking it or discontinuing it completely.
Discontinued
hydrochlorothiazide 25 mg Tablet
25 mg PO DAILY
losartan 100 mg Tablet
100 mg PO DAILY
metoprolol tartrate 25 mg Tablet
25 mg PO BID
Discharge Orders:
Discharge Patient (As Directed); Ordered 09/22/24
Ordered By: Ramírez Lopez
Care Plan Goals
Care Plan Goals:
Problem: Readiness for enhanced knowledge related to diagnosis and treatment plan
Goal: Understand your diagnosis and treatment plan needs, including medications if applicable.
Instructions: Know your diagnosis, underlying causes and treatment plan options, including medications if applicable. Consult with your health care team to learn about your diagnosis and treatment plan, including medications if applicable.
Discharge Date and Time
Print Language: COLOMBIAN
--- NOTE | 2024-09-22 13:13 | PTCARENOTE ---
Report called to [facility]. Chart copies sent to the facility with spouse and faxed. IV and telemetry removed. Patient sent with a rolling walker provided by PT. Patient escorted to [facility] to his car for transport to the
facility.
== END 2024-09-22 13:52 | disposition home or self-care (01) | DRG 307 ==
LOC: IVU 22:45
PROVIDERS: ADMITTING PHYSICIAN Hospitalist; ATTENDING PHYSICIAN Internal Medicine; CONSULT PHYSICIAN Internal Medicine Cardiovascular Disease; EMERGENCY PHYSICIAN Student in an Organized Health Care Education/Training Program; FAMILY PHYSICIAN Nurse Practitioner Adult Health
DX: I34.0 Nonrheumatic mitral (valve) insufficiency (principal); N17.9 Acute kidney failure, unspecified; F03.93 Unspecified dementia, unspecified severity, with mood disturbance; F03.94 Unspecified dementia, unspecified severity, with anxiety; I10 Essential (primary) hypertension; E86.1 Hypovolemia; N40.0 Benign prostatic hyperplasia without lower urinary tract symptoms; E86.0 Dehydration; F32.A Depression, unspecified; E78.00 Pure hypercholesterolemia, unspecified; I95.1 Orthostatic hypotension; R63.4 Abnormal weight loss; Z60.2 Problems related to living alone; Z66 Do not resuscitate; Z87.891 Personal history of nicotine dependence; Z86.73 Personal history of transient ischemic attack (TIA), and cerebral infarction without residual deficits; Z79.02 Long term (current) use of antithrombotics/antiplatelets; Z82.49 Family history of ischemic heart disease and other diseases of the circulatory system; Z68.27 Body mass index [BMI] 27.0-27.9, adult
CPT/HCPCS: 80048; 80053; 83735; 84443; 85025; 87070; 93005; 93306; 97162; 97166; 99285